=== PATIENT | female | born 1990 | race Caucasian/White ===

== ENCOUNTER → 2017-05-09 | Emergency (ER) | payer BC, OTHER ==
[~2017-05-09] MED LIST: HYDROcodone/ACETAMIN 5-325 MG* 1 TAB PO ONE; Ibuprofen TAB* 600 MG PO ONE
[2017-05-09 18:16] VITALS: BP 104/69
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
== END | disposition home or self-care (01) ==
LOC: ED 17:55
DX: S70.01XA Contusion of right hip, initial encounter (principal); V49.40XA Driver injured in collision with unspecified motor vehicles in traffic accident, initial encounter; Y93.9 Activity, unspecified; Y92.9 Unspecified place or not applicable
CPT/HCPCS: 99282; A9270-GY

== ENCOUNTER 2018-09-17 22:12 | Inpatient (IN) | payer BC ==
[2018-09-18] MEDS ORDERED: Lactated Ringers 1000 ML Bag* 1,000 ML IV PRN ×2 (01:48)
[2018-09-18 01:52] LABS: ABS Basophils 0.1 10^3/ul (0-0.2); ABS Eosinophils 0.1 10^3/ul (0-0.6); ABS Monocytes 0.8 10^3/ul (0-0.8); ABS Neutrophils 8.2 10^3/ul (1.5-7.7); ABS Nucleated RBC 0 10^3/ul; Eosinophil % 1.1 %; Hematocrit 38 % (35-47); Hemoglobin 12.8 g/dl (12.0-16.0); Lymphocyte % 17.4 %; Mean Corpuscular HGB Conc 33 g/dl (31-36); Mean Corpuscular Hemoglobin 30 pg (27-31); Mean Corpuscular Volume 90 fL (80-97); Mean Platelet Volume 8.3 fL (7.4-10.4); Nucleated Red Blood Cells % 0.1; Platelet Count 237 10^3/ul (150-450); Red Blood Count 4.28 10^6/ul (4.00-5.40); Red Cell Distribution Width 13 % (10.5-15); White Blood Count 11.3 10^3/ul (3.5-10.8)
[2018-09-18] MEDS ORDERED: OBEPIDURAL* 250 ML EPIDURAL ONE (02:21)
[2018-09-18] MEDS ORDERED: Lactated Ringers 1000 ML Bag* 1,000 ML IV ONE ×2 (02:28→02:50)
--- NOTE | 2018-09-18 02:40 | HP ---
General Information - Reason for Visit active labor - General Information Maternal Age: 28 Grav: 3 Para: 0 SAB: 0 IEA: 2 Estimated Due Date: 09/12/18 Determined By: LMP Maternal Blood Type and Rh: O Positive - Results this Serology/RPR Result: Non-Reactive Rubella Result: Immune HBsAg Result: Negative HIV Result: Negative GBS Culture Result: Negative Past Medical History Pertinent Past Medical History: See Records - migraines Pertinent Past Surgical History: See Records - appendectomy 2011, wrist surgery 2009 Pertinent Family History: See Records - CVD, stroke, DM - Antepartal Records Antepartal Records: Reviewed, Complicated by: - gestational diabetes ( diet controlled) Review of Systems Constitutional: Uncomfortable CV Complaint: No Respiratory: Shortness of Breath: No Gastrointestinal: No Nausea/Vomiting, Normal Bowel Movement Genitourinary: No Dysuria, No Bleeding, No Leaking Fluid Musculoskeletal: Contractions Neurological: No Headache, No Visual Changes Movement: Normal Exam Allergies/Adverse Reactions: Allergies amoxicillin Allergy (Verified 09/17/18 22:40) Rash latex Allergy (Verified 09/17/18 22:39) Anaphylatic Shock Penicillins Allergy (Verified 09/17/18 22:40) Rash T:97.4, P:85, R:20, BP:130/83, 99% Lab Values - Entire Visit: Laboratory Tests 09/18/18 09/18/18 09/18/18 01:34 01:35 01:35 WBC 11.3 H RBC 4.28 Hgb 12.8 Hct 38 MCV 90 MCH 30 MCHC 33 RDW 13 Plt Count 237 MPV 8.3 Neut % (Auto) 73.2 Lymph % (Auto) 17.4 [place] % (Auto) 7.5 Eos % (Auto) 1.1 Baso % (Auto) 0.8 Absolute Neuts (auto) 8.2 H Absolute Lymphs (auto) 2.0 Absolute Monos (auto) 0.8 Absolute Eos (auto) 0.1 Absolute Basos (auto) 0.1 Absolute Nucleated RBC 0 Nucleated RBC % 0.1 POC Glucose (mg/dL) 89 Blood Type O Positive Antibody Screen Negative - Measurements Height: 5 ft 4 in Weight: 167 lb 0.017 oz Weight in lbs: [id number] Body Mass Index (BMI): 28.6 Pre- Weight: 140 lb Weight Gained This : 27.001 lbs and 0.001 ozs - Exam Breast: Breast Exam Deferred CVA: No CVA Tenderness Extremities: No Edema Heart: Normal Rhythm/Heart Sounds HEENT: No Significant Findings Lungs: Clear Bilaterally Rectal: Rectal Exam Deferred Reflexes: DTR 2+ Thyroid: No Thyromegaly - Abdominal Exam Abdomen Exam: Fundal Height Consistent with Dates - Ultrasound/Biophysical Profile Ultrasound Status: Not Done Targeted Exam Findings Estimated Weight: 7.9lbs Cervical Exam: 5cm Effacement: 90% Station: 0 Presenting Part: Vertex Membrane Status: Intact Bleeding/Discharge: Bloody Show EFM Findings - External Monitor Findings Baseline Heart Rate: 140 External Monitor Findings: Accelerations Present, No Pattern of Variable or Late Decelerations, Variability Moderate, Baseline Stable Contractions: Regular, Moderate, 45-90 Seconds Assessment/Plan - Assessment active labor - Obstetrical Risk Factors Obstetrical Risk Factors: Gestational Diabetes - diet controlled - Plan Plan: Admit - Anticipate Vaginal Delivery - Date/Time of Admission Date of Admission: 09/18/18 Time of Admission: 01:30
[2018-09-18] MEDS ORDERED: Sodium Citrate/Citric Acid* 15 ML UDC PO PRN (02:50)
[2018-09-18] MEDS ORDERED: EPHEDrine (Pressors)* 50 MG/ML VIAL IV PUSH PRN ×2 (02:50)
[2018-09-18] MEDS ORDERED: Famotidine TAB* 20 MG PO PRN (02:50)
[2018-09-18] MEDS ORDERED: Phenylephrine IV* 40 MCG/ML 10 ML SYRINGE IV PUSH PRN ×2 (02:50)
[2018-09-18] MEDS ORDERED: OBEPIDURAL* 250 ML EPIDURAL SCH (03:00)
[2018-09-18] MEDS ORDERED: Lactated Ringers 1000 ML Bag* 1,000 ML IV SCH ×3 (03:00→08:00)
[2018-09-18] MEDS ORDERED: Oxytocin in LR* 20 UNITS/1,000 ML BAG IVPB ONE (07:31)
[2018-09-18] MEDS ORDERED: Witch Hazel PAD* JAR TOPICAL PRN (07:45)
[2018-09-18] MEDS ORDERED: Dibucaine 1% 28.35 GM TUBE PR PRN (07:45)
[2018-09-18] MEDS ORDERED: Glycerin ADULT SUPP PR PRN (07:45)
--- NOTE | 2018-09-18 07:49 | PROCNOTE ---
[facility]: Delivery Note - Delivery A Date of : 09/18/18 Time of : 07:24 Sex: Female Score 1 Minute: 8 Score 5 Minutes: 9 Gestational Age in Weeks and Days at Delivery: 40 Weeks and 6 Days Delivery Method: Spontaneous Vaginal Labor: Spontaneous Did Patient attempt ?: N/A, No Previous Amniotic Fluid: Clear Estimated Blood Loss: 150 Anesthesia/Analgesia: CEI for Labor Delivered By: Dena Ray - Nursery Level of Nursery: Regular/Bedside - Perineum Perineal Injury: 1st Degree Perineal Injury Comment: Right labial Perineal Repair: By Delivering Practioner - Events Delivery Events of Note: Pitocin Only After Delivery
[2018-09-18] MEDS ORDERED: Oxytocin in LR* 20 UNITS/1,000 ML BAG IVPB SCH (08:00)
[2018-09-18] MEDS ORDERED: Simethicone TAB* 80 MG TAB.CHEW PO SCH (08:30)
[2018-09-18] MEDS: Ibuprofen TAB* 600 MG PO PRN ×3 (09:32→22:12)
[2018-09-18] MEDS: Docusate CAP* 100 MG PO SCH ×3 (09:32→22:12)
[2018-09-19] MEDS: Ibuprofen TAB* 600 MG PO PRN ×2 (04:16→22:29)
[2018-09-19 06:52] LABS: ABS Basophils 0 10^3/ul (0-0.2); ABS Eosinophils 0.2 10^3/ul (0-0.6); ABS Lymphocytes 1.9 10^3/ul (1.0-4.8); ABS Monocytes 1.1 10^3/ul (0-0.8); ABS Neutrophils 10.1 10^3/ul (1.5-7.7); ABS Nucleated RBC 0 10^3/ul; Eosinophil % 1.4 %; Hematocrit 34 % (35-47); Hemoglobin 11.7 g/dl (12.0-16.0); Lymphocyte % 14.5 %; Mean Corpuscular HGB Conc 34 g/dl (31-36); Mean Corpuscular Hemoglobin 31 pg (27-31); Mean Corpuscular Volume 90 fL (80-97); Mean Platelet Volume 7.9 fL (7.4-10.4); Nucleated Red Blood Cells % 0; Platelet Count 215 10^3/ul (150-450); Red Blood Count 3.84 10^6/ul (4.00-5.40); Red Cell Distribution Width 13 % (10.5-15); White Blood Count 13.3 10^3/ul (3.5-10.8)
[2018-09-19] MEDS ORDERED: Ferrous Gluconate TAB* 324 MG TAB PO SCH (09:00)
[2018-09-19] MEDS: Docusate CAP* 100 MG PO SCH ×3 (09:45→20:55)
[2018-09-19] MEDS: Acetaminophen TAB* 325 MG PO PRN ×2 (17:20→22:28)
[2018-09-20] MEDS: Ibuprofen TAB* 600 MG PO PRN (03:55)
[2018-09-20 08:05] VITALS: BP 127/81
== END 2018-09-20 10:20 | disposition home or self-care (01) | DRG 560 ==
LOC: MCHOBOUT 22:12 → MCHOB 09-18 00:50
PROVIDERS: ADMIT Midwife; ATTEND Midwife
PROC: 10E0XZZ Delivery of Products of Conception, External Approach (ICD-10-PCS; principal; 2018-09-18)
PROC: 4A1HXCZ Monitoring of Products of Conception, Cardiac Rate, External Approach (ICD-10-PCS; 2018-09-18)
PROC: 10907ZC Drainage of Amniotic Fluid, Therapeutic from Products of Conception, Via Natural or Artificial Opening (ICD-10-PCS; 2018-09-18)
PROC: 0HQ9XZZ Repair Perineum Skin, External Approach (ICD-10-PCS; 2018-09-18)
DX: O24.420 Gestational diabetes mellitus in childbirth, diet controlled (principal); Z37.0 Single live birth; O48.0 Post-term pregnancy; O75.89 Other specified complications of labor and delivery; G43.909 Migraine, unspecified, not intractable, without status migrainosus; Z88.0 Allergy status to penicillin; Z91.040 Latex allergy status; Z3A.40 40 weeks gestation of pregnancy; O70.0 First degree perineal laceration during delivery
CPT/HCPCS: 36415; 85025; 86850; 86900; 86901; A9270-GY

== ENCOUNTER 2019-01-28 06:44 | Emergency (ER) | payer BC ==
[2019-01-28 07:15] LABS: ABS Basophils 0.1 10^3/ul (0-0.2); ABS Eosinophils 0.1 10^3/ul (0-0.6); ABS Lymphocytes 2.1 10^3/ul (1.0-4.8); ABS Monocytes 0.5 10^3/ul (0-0.8); ABS Neutrophils 4.6 10^3/ul (1.5-7.7); ABS Nucleated RBC 0 10^3/ul; Eosinophil % 1.7 %; Hematocrit 40 % (33-41); Hemoglobin 13.2 g/dL (12.0-16.0); Lymphocyte % 28.3 %; Mean Corpuscular HGB Conc 33 g/dL (31-36); Mean Corpuscular Hemoglobin 30 pg (27-31); Mean Corpuscular Volume 89 fL (80-97); Mean Platelet Volume 8.1 fL (7.4-10.4); Nucleated Red Blood Cells % 0.1; Platelet Count 297 10^3/uL (150-450); Red Blood Count 4.45 10^6 /uL (3.70-4.87); Red Cell Distribution Width 13 % (10.5-15); White Blood Count 7.4 10^3/uL (3.5-10.8)
[2019-01-28 07:30] LABS: Albumin/Globulin Ratio 1.6 (1-3); BUN/Creatinine Ratio 17.8 (8-20); Calcium 8.8 mg/dL (8.6-10.3); EGFR African American 90.9 (>60); EGFR Non-African American 75.1 (>60); Globulin 2.5 g/dL (2-4); Magnesium 1.8 mg/dL (1.9-2.7); Potassium 4.2 mmol/L (3.5-5.0); Total Bilirubin 0.2 mg/dL (0.2-1.0); Total Protein 6.5 g/dL (6.4-8.9)
[2019-01-28 07:31] LABS: Troponin I 0.01 ng/mL (<0.04)
[2019-01-28] MEDS ORDERED: Acetaminophen TAB* 325 MG PO ONE (07:43)
[2019-01-28 08:20] LABS: Urine Appearance Cloudy; Urine Bacteria Absent (Absent); Urine Bilirubin Negative (Negative); Urine Blood 1+ (Negative); Urine Color Yellow; Urine Glucose Negative (Negative); Urine Ketones Negative (Negative); Urine Nitrite Negative (Negative); Urine Protein Negative (Negative); Urine Red Blood Cell Trace(0-2/hpf) (Absent); Urine Specific Gravity 1.017 (1.010-1.030); Urine Squamous Epithelial Cell Present (Absent); Urine Urobilinogen Negative (Negative); Urine White Blood Cell Trace(0-5/hpf) (Absent)
[2019-01-28 08:24] VITALS: BP 110/62
[2019-01-28 08:37] LABS: TSH (Thyroid Stimulating Horm) 0.45 mcIU/mL (0.34-5.60)
--- NOTE | 2019-01-28 08:56 | ED ---
Syncope/Near Syncope - HPI Summary HPI Summary: Patient is a 28-year-old otherwise healthy female presenting to the ED with a syncopal episode this morning. She states she has been dealing with syncopal episodes intermittently since second grade. She states her last episode was 2 years ago. She does endorse a feeling of lightheadedness without dizziness or headache just prior to her syncopal episodes. She states she is very aware of when she may have one and is able to usually get to lower ground. She typically denies any loss of consciousness with this. She does endorse some LOC during the syncopal episode, however syncopal episode was witnessed by partner and states he helped her down to the floor, denies her hitting her head and came to a few seconds later. She was given some water and felt improved. She arrives to the ED with complaints of feeling lightheaded, but denies any headache, dizziness, CP, SOB or any other symptoms. She denies any recent illness. She denies change in medications. She does admit to not eating or drinking anything prior to her syncopal episode and she was standing when this occurred. FHx: Mother is at bedside stating father had TX at 45 years old. - History Of Current Complaint Chief Complaint: EDSyncope Time Seen by Provider: 01/28/19 06:47 Hx Obtained From: Patient Onset/Duration: Sudden Onset Timing: Constant Context: Witnessed Associated Head Trauma: No Aggravating Factor(s): Nothing Alleviating Factor(s): Nothing Associated Signs And Symptoms: Negative Frequency: Episodes x___ - 1, Episodes Lasting ____ (in Mins/Days/Weeks/Years) - 5 sec, Ongoing Incidents Of Syncope For (in Mins/Days/Weeks/Years) - several years - last episode 2 yrs ago - Risk Factors Cardiac Risk Factors: Family History Dysrhythmia Risk Factors: Negative Risk Factor(s): Negative - Allergies/Home Medications Allergies/Adverse Reactions: Allergies Allergy/AdvReac Type Severity Reaction Status Date / Time amoxicillin Allergy Rash Verified 01/28/19 06:56 latex Allergy Anaphylatic Verified 01/28/19 06:56 Shock mushroom Allergy Rash Verified 01/28/19 06:56 Penicillins Allergy Rash Verified 01/28/19 06:56 Home Medications: Home Medications Topiramate TAB(*) [Topamax 25 MG tab] 25 mg PO BID PRN 01/28/19 [History Confirmed 01/28/19] PMH/Surg Hx/FS Hx/Imm Hx Previously Healthy: Yes Endocrine/Hematology History: Denies: Hx Anticoagulant Therapy, Hx Diabetes, Hx Thyroid Disease Cardiovascular History: Denies: Hx Hypertension, Hx Pacemaker/ICD Sensory History: Denies: Hx Hearing Aid Neurological History: Reports: Other Neuro Impairments/Disorders - History of syncope with unknown cause Psychiatric History: Denies: Hx Panic Disorder - Surgical History Surgery Procedure, Year, and Place: APPENDECTOMY 11/2011 - Immunization History Hx Pertussis Vaccination: No Immunizations Up to Date: Yes Infectious Disease History: No Infectious Disease History: Denies: Traveled Outside the [place] in Last 30 Days - Family History Known Family History: Positive: Cardiac Disease - Social History Occupation: Employed Full-time Lives: With Family Alcohol Use: None Hx Substance Use: No Substance Use Type: Reports: None Hx Tobacco Use: No Smoking Status (MU): Never Smoked Tobacco Have You Smoked in the Last Year: No Review of Systems Constitutional: Negative Negative: Fever, Chills, Fatigue, Skin Diaphoresis Negative: Palpitations, Chest Pain Negative: Shortness Of Breath, Cough Negative: Arthralgia, Myalgia Negative: Rash, Bruising Neurological: Negative Positive: Syncope All Other Systems Reviewed And Are Negative: Yes Physical Exam Triage Information Reviewed: Yes Vital Signs On Initial Exam: Initial Vitals Resp 21 01/28/19 06:49 Vital Signs Reviewed: Yes Appearance: Positive: Well-Appearing, Well-Nourished Skin: Positive: Warm, Skin Color Reflects Adequate Perfusion Head/Face: Positive: Normal Head/Face Inspection Eyes: Positive: EOMI, Conjunctiva Clear Neck: Positive: Supple, No Lymphadenopathy Respiratory/Lung Sounds: Positive: Clear to Auscultation, Breath Sounds Present Cardiovascular: Positive: RRR, Pulses are Symmetrical in both Upper and Lower Extremities. Negative: Leg Edema Left, Leg Edema Right Musculoskeletal: Positive: Normal, Strength/ROM Intact Neurological: Positive: Sensory/Motor Intact, Alert, Oriented to Person Place, Time Psychiatric: Positive: Normal, Affect/Mood Appropriate AVPU Assessment: Alert Diagnostics - Vital Signs Vital Signs Temp Pulse Resp BP Pulse Ox 01/28/19 08:23 98.2 F 64 17 110/62 100 01/28/19 08:00 65 21 99 01/28/19 07:50 82 17 105/70 100 01/28/19 07:20 68 15 105/65 99 01/28/19 07:03 94 104/77 01/28/19 07:02 25 99 01/28/19 07:01 14 100 01/28/19 07:00 17 100 01/28/19 06:56 100 01/28/19 06:53 98.7 F 81 21 111/67 100 01/28/19 06:50 17 111/67 01/28/19 06:49 21 - Laboratory Lab Results: Lab Results 01/28/19 01/28/19 01/28/19 Range/Units 07:06 07:06 07:06 WBC 7.4 (3.5-10.8) 10^3/uL RBC 4.45 (3.70-4.87) 10^6 /uL Hgb 13.2 (12.0-16.0) g/dL Hct 40 (33-41) % MCV 89 (80-97) fL MCH 30 (27-31) pg MCHC 33 (31-36) g/dL RDW 13 (10.5-15) % Plt Count 297 (150-450) 10^3/uL MPV 8.1 (7.4-10.4) fL Neut % (Auto) 61.7 % Lymph % (Auto) 28.3 % [place] % (Auto) 7.4 % Eos % (Auto) 1.7 % Baso % (Auto) 0.9 % Absolute Neuts (auto) 4.6 (1.5-7.7) 10^3/ul Absolute Lymphs (auto) 2.1 (1.0-4.8) 10^3/ul Absolute Monos (auto) 0.5 (0-0.8) 10^3/ul Absolute Eos (auto) 0.1 (0-0.6) 10^3/ul Absolute Basos (auto) 0.1 (0-0.2) 10^3/ul Absolute Nucleated RBC 0 10^3/ul Nucleated RBC % 0.1 Sodium 140 (135-145) mmol/L Potassium 4.2 (3.5-5.0) mmol/L Chloride 108 (101-111) mmol/L Carbon Dioxide 26 (22-32) mmol/L Anion Gap 6 (2-11) mmol/L BUN 16 (6-24) mg/dL Creatinine 0.90 (0.51-0.95) mg/dL Est GFR ( Amer) 90.9 (>60) Est GFR (Non-Af Amer) 75.1 (>60) BUN/Creatinine Ratio 17.8 (8-20) Glucose 105 H (70-100) mg/dL Lactic Acid 1.1 (0.5-2.0) mmol/L Calcium 8.8 (8.6-10.3) mg/dL Magnesium 1.8 L (1.9-2.7) mg/dL Total Bilirubin 0.20 (0.2-1.0) mg/dL AST 18 (13-39) U/L ALT 27 (7-52) U/L Alkaline Phosphatase 153 H (34-104) U/L Troponin I 0.01 (<0.04) ng/mL Total Protein 6.5 (6.4-8.9) g/dL Albumin 4.0 (3.2-5.2) g/dL Globulin 2.5 (2-4) g/dL Albumin/Globulin Ratio 1.6 (1-3) TSH 0.45 (0.34-5.60) mcIU/mL Urine Color Urine Appearance Urine pH (5-9) Ur Specific [place] (1.010-1.030) Urine Protein (Negative) Urine Ketones (Negative) Urine Blood (Negative) Urine Nitrate (Negative) Urine Bilirubin (Negative) Urine Urobilinogen (Negative) Ur Leukocyte Esterase (Negative) Urine WBC (Auto) (Absent) Urine RBC (Auto) (Absent) Ur Squamous Epith Cells (Absent) Urine Bacteria (Absent) Hyaline Casts (Absent) Urine Glucose (Negative) 01/28/19 Range/Units 07:57 WBC (3.5-10.8) 10^3/uL RBC (3.70-4.87) 10^6 /uL Hgb (12.0-16.0) g/dL Hct (33-41) % MCV (80-97) fL MCH (27-31) pg MCHC (31-36) g/dL RDW (10.5-15) % Plt Count (150-450) 10^3/uL MPV (7.4-10.4) fL Neut % (Auto) % Lymph % (Auto) % [place] % (Auto) % Eos % (Auto) % Baso % (Auto) % Absolute Neuts (auto) (1.5-7.7) 10^3/ul Absolute Lymphs (auto) (1.0-4.8) 10^3/ul Absolute Monos (auto) (0-0.8) 10^3/ul Absolute Eos (auto) (0-0.6) 10^3/ul Absolute Basos (auto) (0-0.2) 10^3/ul Absolute Nucleated RBC 10^3/ul Nucleated RBC % Sodium (135-145) mmol/L Potassium (3.5-5.0) mmol/L Chloride (101-111) mmol/L Carbon Dioxide (22-32) mmol/L Anion Gap (2-11) mmol/L BUN (6-24) mg/dL Creatinine (0.51-0.95) mg/dL Est GFR ( Amer) (>60) Est GFR (Non-Af Amer) (>60) BUN/Creatinine Ratio (8-20) Glucose (70-100) mg/dL Lactic Acid (0.5-2.0) mmol/L Calcium (8.6-10.3) mg/dL Magnesium (1.9-2.7) mg/dL Total Bilirubin (0.2-1.0) mg/dL AST (13-39) U/L ALT (7-52) U/L Alkaline Phosphatase (34-104) U/L Troponin I (<0.04) ng/mL Total Protein (6.4-8.9) g/dL Albumin (3.2-5.2) g/dL Globulin (2-4) g/dL Albumin/Globulin Ratio (1-3) TSH (0.34-5.60) mcIU/mL Urine Color Yellow Urine Appearance Cloudy Urine pH 5.0 (5-9) Ur Specific [place] 1.017 (1.010-1.030) Urine Protein Negative (Negative) Urine Ketones Negative (Negative) Urine Blood 1+ A (Negative) Urine Nitrate Negative (Negative) Urine Bilirubin Negative (Negative) Urine Urobilinogen Negative (Negative) Ur Leukocyte Esterase Negative (Negative) Urine WBC (Auto) Trace(0-5/hpf) (Absent) Urine RBC (Auto) Trace(0-2/hpf) (Absent) Ur Squamous Epith Cells Present A (Absent) Urine Bacteria Absent (Absent) Hyaline Casts Present A (Absent) Urine Glucose Negative (Negative) Result Diagrams: 01/28/19 07:06 01/28/19 07:06 Lab Statement: Any lab studies that have been ordered have been reviewed, and results considered in the medical decision making process. Course/Dx Course Of Treatment: During the course of treatment, the patient is evaluated for a syncopal episode. Labs are obtained which are WNL except for an alkaline phosphatase which is slightly elevated. Urine obtained which is WNL. EKG shows normal sinus rhythm with low voltage, precordial leads. Rate of 77. Vital signs are stable. Patient appears well, nontoxic appearing, however appears fatigued. Discussed with the patient at length, this is likely vasovagal episode as she had symptoms and feelings of the syncopal episode, denies any chest pain or headache during this time and felt improved after obtaining fluids. She has also been dealing with this for many years. I discussed if symptoms continue or worsen, to return to the ED or she is able to follow up with one of our cardiologists. At this time she will be diagnosed with vasovagal episode. - Diagnoses Differential Diagnosis/HQI/PQRI: Positive: Hypoglycemia, Hypovolemia, Metabolic Reaction, Vasovagal Episode Provider Diagnoses: Vasovagal episode Discharge - Sign-Out/Discharge Documenting (check all that apply): Patient Departure Patient Received Moderate/Deep Sedation with Procedure: No - Discharge Plan Condition: Stable Disposition: HOME Patient Education Materials: Syncope (ED) Forms: *Work Release Referrals: No Primary Care Phys,NOPCP [Primary Care Provider] - Additional Instructions: If symptoms continue, I recommend a follow up with a manager e commerce However, as discussed, sometimes people are more prone to having vasovagal syncopal episodes Drink plenty of water following and including juice - Billing Disposition and Condition Condition: STABLE Disposition: Home
== END 2019-01-28 08:23 | disposition home or self-care (01) ==
LOC: ED 06:44
DX: R55 Syncope and collapse (principal); Z88.3 Allergy status to other anti-infective agents; Z88.0 Allergy status to penicillin; Z91.040 Latex allergy status
CPT/HCPCS: 36415; 80053; 81003; 81015; 83605; 83735; 84443; 84484; 85025; 87086; 93005; 99283; A9270-GY

== ENCOUNTER 2019-02-13 09:45 | Emergency (ER) | payer BC ==
--- NOTE | 2019-02-13 10:10 | ED ---
Syncope/Near Syncope - HPI Summary HPI Summary: This patient is a 28 year old MF presenting to [facility] with history of syncope since 2nd grade and a chief complaint of syncope since this morning 02/13/19 while receiving and echo in [facility] [place]. Patient reports migraine, nausea, lightheadedness, and dizziness. Patient denies rash, urinary symptoms, edema, and head injury. Patient also reports not eating today and an unknown LNMP due to Mirena IUD. Symptoms aggravated by nothing. Symptoms alleviated by nothing. - History Of Current Complaint Chief Complaint: EDSyncope Time Seen by Provider: 02/13/19 09:52 Hx Obtained From: Patient Onset/Duration: Sudden Onset - this morning 02/13/19, length is unsure, Resolved Timing: Constant - one episode Context: Witnessed Activity At Onset: At Rest Associated Head Trauma: No Aggravating Factor(s): Nothing Alleviating Factor(s): Nothing Associated Signs And Symptoms: Dizzy, Headache, Lightheadedness, Other - Nausea ; Negative: head injury, edema, rash, urinary symptoms Related History: Similar Episode/Dx as - Has previous Hx of unkown cause - Allergies/Home Medications Allergies/Adverse Reactions: Allergies Allergy/AdvReac Type Severity Reaction Status Date / Time amoxicillin Allergy Rash Verified 02/13/19 09:51 latex Allergy Anaphylatic Verified 02/13/19 09:51 Shock mushroom Allergy Rash Verified 02/13/19 09:51 Penicillins Allergy Rash Verified 02/13/19 09:51 Home Medications: Home Medications ZOLMitriptan [Zolmitriptan] 2.5 mg PO SEE INSTRUCTIONS PRN 02/13/19 [History Confirmed 02/13/19] PMH/Surg Hx/FS Hx/Imm Hx Previously Healthy: No Endocrine/Hematology History: Denies: Hx Anticoagulant Therapy, Hx Diabetes, Hx Thyroid Disease Cardiovascular History: Denies: Hx Hypertension, Hx Pacemaker/ICD Sensory History: Denies: Hx Hearing Aid Neurological History: Reports: Other Neuro Impairments/Disorders - History of syncope with unknown cause Psychiatric History: Denies: Hx Panic Disorder - Surgical History Surgery Procedure, Year, and Place: APPENDECTOMY 11/2011 Infectious Disease History: No Infectious Disease History: Denies: Traveled Outside the [place] in Last 30 Days - Family History Known Family History: Positive: Cardiac Disease - Social History Alcohol Use: None Hx Substance Use: No Substance Use Type: Reports: None Hx Tobacco Use: No Smoking Status (MU): Never Smoked Tobacco Have You Smoked in the Last Year: No Review of Systems Positive: Nausea Positive: no symptoms reported Positive: Other - Negative: head injury. Negative: Edema Negative: Rash Neurological: Other - Dizziness, Migraine Positive: Syncope All Other Systems Reviewed And Are Negative: Yes Physical Exam - Summary Physical Exam Summary: Constitutional: Well-developed, Well-nourished, Alert. (-) Distressed Skin: Warm, Dry HENT: Normocephalic; Atraumatic Eyes: Conjunctiva normal Neck: Musculoskeletal ROM normal neck. (-) JVD, (-) Stridor, (-) Tracheal deviation Cardio: Rhythm regular, rate normal, Heart sounds normal; Intact distal pulses; The pedal pulses are 2+ and symmetric. Radial pulses are 2+ and symmetric. (-) Murmur Pulmonary/Chest wall: Effort normal. (-) Respiratory distress, (-) Wheezes, (-) Rales Abd: Soft, (-) tenderness, (-) Distension, (-) Guarding, (-) Rebound Musculoskeletal: (-) Edema Lymph: (-) Cervical adenopathy Neuro: Alert, Oriented x3 Psych: Mood and affect Normal Triage Information Reviewed: Yes Vital Signs On Initial Exam: Initial Vitals Temp Pulse Resp BP Pulse Ox 99.0 F 80 16 142/96 100 02/13/19 09:47 02/13/19 09:47 02/13/19 09:47 02/13/19 09:47 02/13/19 09:47 Vital Signs Reviewed: Yes Diagnostics - Vital Signs Vital Signs Temp Pulse Resp BP Pulse Ox 02/13/19 09:47 99.0 F 80 16 142/96 100 - Laboratory Result Diagrams: 02/13/19 10:22 02/13/19 10:22 Lab Statement: Any lab studies that have been ordered have been reviewed, and results considered in the medical decision making process. - EKG 1004 Cardiac Rate: NL - 73 EKG Rhythm: Sinus Rhythm Summary of EKG Findings: Normal sinus rhythm at 73 bpm, normal AK, normal QRS, normal QTc, normal axis, normal ST, normal T-waves, normal EKG. Re-Evaluation - Re-Evaluation First Eval Re-Evaluation Time: 11:20 Change: Improved Comment: Discharge plan was discussed with the patient. Patient reports feeling normal and is agreeable. Course/Dx Course Of Treatment: This patient is a 28 year old MF presenting to [facility] with a chief complaint of syncope since this morning 02/13/19. Patient has abnormal labratory findings of carbondioxide of 19 L, and alkaline phosphate of 144 H. The patient's EKG was also normal, with a sinus rhythm at 73 bpm, normal AK, normal QRS, normal QTc, normal axis, normal ST, and normal T-waves. Patient reported a previous Hx of syncope starting back in 2nd grade. The symptoms experianced on this visit were similar to prior episodes of syncope. Patient was Dx with vasovagal syncope. Patient was discharged home. - Diagnoses Differential Diagnosis/HQI/PQRI: Positive: Vasovagal Episode Provider Diagnoses: Syncope, vasovagal Discharge - Sign-Out/Discharge Documenting (check all that apply): Patient Departure - discharge Patient Received Moderate/Deep Sedation with Procedure: No - Discharge Plan Condition: Stable Disposition: HOME Patient Education Materials: Syncope (ED) Print Language: WELSH Referrals: [facility] [place] PHYSICIAN REFERRAL [Outside] - 1 Day - Billing Disposition and Condition Condition: STABLE Disposition: Home - Attestation Statements Document Initiated by Scribe: Yes Documenting Scribe: Romulo Michaels Provider For Whom Scribe is Documenting (Include Credential): Ceci Garcia MD Scribe Attestation: Romulo Mayes, scrpauled for Ceci Mcneil MD on 02/13/19 at 1135. Scribe Documentation Reviewed: Yes Provider Attestation: The documentation as recorded by the Romulo ivory accurately reflects the service I personally performed and the decisions made by me, Ceci Mcneil MD Status of Scribe Document: Viewed
--- OUTSIDE RECORDS SUMMARY | 2019-02-13 10:28 | XMS REPORT | Continuity of Care Document ---
:1990 External Reference #:[id number] Author Name Kimberly White Care Team Providers Name Role Phone Dena Ray L.M. 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 Cesario Sams Expires: 2017 PayID: [id number] [address] [place] [address] Advance Directives Description No Information Available Problems Active Problems Provider Date Migraine Deanna Decker M.D. Onset: 01/01/2015 Epidemic vertigo Nilay Flowers MD Onset: 02/07/2019 Syncope and collapse Dave Mayers N.P. Onset: 01/31/2019 Refractory migraine Estrada Pina M.D. Onset: 03/05/2018 Closed extraarticular fracture of distal Berkley Yu M.D. 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 Tablets Zolmitriptan take 1 at start 10tabs G43.919 Mushtaqluisolga lidia Pina, 10/11/2018 5mg of headache, january M.D. Tablets repeat X 1 in 2 hours if headache persists, no more than 2 in 24 hours, 2 times a week. Tylenol as needed Unknown 325mg Capsules History Medications Methylprednisolone take as 21units G43.919 Dave 01/31/2019 - 4mg TBPK directed Talib, N.PCassie 02/06/2019 Zonisamide 4 caps by mouth 120caps G43.919 Lima Call MD 08/03/2017 - 25mg Capsules every night as 03/04/2018 directed Magnesium Oxide 1 tab by mouth 60tabs G43.919 Deanna Kitchen 08/03/2017 - 400mg Tablets 1-2 times per Vahe Decker 03/04/2018 day as directed Topamax 3 by mouth at 90tabs G43.909 Deanna Kitchen 03/02/2017 - 25mg Tablets every day Vahe Decker 03/04/2018 Ketoprofen 1 by mouth at 30caps G43.909 Deanna Kitchen 03/02/2017 - 75mg Capsules bedtime for 6 Vahe Decker 03/04/2018 days beginning with first headache occurance Sumatriptan Succinate 1/2-1 tab by 12tabs G43.909 Deanan Kitchen 03/02/2017 - 100mg mouth as needed Vahe Decker 03/04/2018 Tablets Topamax 1 tab by mouth 90tabs Lima Call MD 11/07/2016 - 100mg Tablets once a day 08/02/2017 Topamax 3 by mouth at 120tabs Deanna Kitchen 05/19/2016 - 25mg Tablets every day Vahe Decker 11/07/2016 Pamelor 1-2 by mouth 60caps Deanna Kitchen 03/09/2016 - 25mg Capsules every day as Vahe Decker 06/15/2016 directed No Active Medications Unknown 01/28/2016 - 03/09/2016 Zolmitriptan 1 by mouth 10tabs Flavio Rocha 11/20/2015 - 5mg Tablets twice a day as Vahe Rodriguez 03/04/2018 Dispers needed headache max 2 days a week Hydrocodone-Acetaminophe 1 by mouth 30tabs G43.909 Deanna Kitchen 01/01/2015 - n every 8 hours Vahe Decker 01/27/2016 5-325mg Tablets prn. Pamelor 4 caps every 120caps G43.919 Falvio Rocha 08/12/2014 - 10mg Capsules night as Vahe Rodriguez 01/27/2016 directed Relpax 1 tab by mouth 12tabs Deanna Kitchen 09/19/2013 - 40mg Tablets as needed ; january Vahe Decker 05/13/2015 repeat in 2 hrs. x1 Topiramate 2 tbs po qhs 120tabs Deanna Kitchen 09/20/2012 - 50mg Tablets Vahe Decker 01/30/2014 Control Pill Unknown - 08/02/2014 Topiramate 2 by mouth qhs Deanna Kitchen - 50mg Tablets Vahe Decker 08/02/2014 Zonisamide 3-4 caps by 120caps Deanna Morrell. - 50mg Capsules mouth every Vahe Decker 12/01/2014 night at bedtime as directed Ortho Micronor one tab by Unknown - 0.35mg Tablets mouth daily 05/13/2015 Hydrocodone-Acetaminophe take one tablet 25tabs Berkley - n by mouth mendez Yu M.D. 05/31/2016 5-325mg Tablets 6 hours as needed for pain Nortriptyline HCL 2 by mouth Unknown - 25mg every night at 05/31/2016 Capsules bedtime Mirena (52 MG) Unknown - 20mcg/24HR IUD 03/04/2018 Advil as needed Unknown - 200mg Tablets 03/04/2018 Immunizations Description No Information Available Vital Signs Date Vital Result Comment 02/07/2019 3:52pm Height 54 inches 4'6" Weight 152.00 lb Heart Rate 78 /min BP Systolic 120 mmHg BP Diastolic 80 mmHg Respiratory Rate 16 /min Body Temperature 99.6 F O2 % BldC Oximetry 98 % BMI (Body Mass Index) 36.6 kg/m2 01/31/2019 3:17pm Height 64 inches 5'4" Weight 150.00 lb Heart Rate 76 /min BP Systolic 122 mmHg BP Diastolic 78 mmHg BMI (Body Mass Index) 25.7 kg/m2 10/11/2018 2:21pm Height 64 inches 5'4" Weight 155.75 lb Heart Rate 72 /min BP Systolic Sitting 122 mmHg BP Diastolic Sitting 90 mmHg Respiratory Rate 16 /min BMI (Body Mass Index) 26.7 kg/m2 03/05/2018 11:12am Height 64 inches 5'4" Weight 145.00 lb Heart Rate 72 /min BP Systolic Sitting 104 mmHg BP Diastolic Sitting 72 mmHg Respiratory Rate 16 /min BMI (Body Mass Index) 24.9 kg/m2 08/03/2017 3:05pm Height 64 inches 5'4" Weight 135.00 lb Heart Rate 87 /min BP Systolic Sitting 110 mmHg BP Diastolic Sitting 62 mmHg Respiratory Rate 16 /min BMI (Body Mass Index) 23.2 kg/m2 03/02/2017 3:01pm Height 64 inches 5'4" Weight 132.00 lb Heart Rate 80 /min BP Systolic Sitting 104 mmHg BP Diastolic Sitting 66 mmHg Respiratory Rate 14 /min BMI (Body Mass Index) 22.7 kg/m2 10/27/2016 2:16pm Height 64 inches 5'4" Weight 135.00 lb Heart Rate 72 /min BP Systolic Sitting 104 mmHg BP Diastolic Sitting 64 mmHg Respiratory Rate 14 /min BMI (Body Mass Index) 23.2 kg/m2 06/16/2016 3:15pm Height 64 inches 5'4" Weight 130.00 lb Heart Rate 76 /min BP Systolic Sitting 104 mmHg BP Diastolic Sitting 76 mmHg Respiratory Rate 14 /min O2 % BldC Oximetry 98 % BMI (Body Mass Index) 22.3 kg/m2 06/01/2016 2:32pm Height 64 inches 5'4" Heart Rate 73 /min BP Systolic 121 mmHg BP Diastolic 81 mmHg 05/12/2016 3:45pm Height 64 inches 5'4" Weight 125.00 lb Pain Level 0 BMI (Body Mass Index) 21.5 kg/m2 04/18/2016 9:08am Height 64 inches 5'4" Weight 125.00 lb Heart Rate 60 /min Respiratory Rate 16 /min Pain Level 7 BMI (Body Mass Index) 21.5 kg/m2 04/07/2016 3:14pm Height 64 inches 5'4" Weight 125.00 lb BMI (Body Mass Index) 21.5 kg/m2 03/30/2016 8:30am Height 64 inches 5'4" Weight 125.00 lb Heart Rate 60 /min BP Systolic Sitting 112 mmHg BP Diastolic Sitting 64 mmHg Respiratory Rate 16 /min Pain Level 8 BMI (Body Mass Index) 21.5 kg/m2 01/28/2016 4:01pm Height 64 inches 5'4" Heart Rate 84 /min BP Systolic Sitting 128 mmHg BP Diastolic Sitting 76 mmHg Respiratory Rate 16 /min 08/13/2015 10:01am Height 64 inches 5'4" Weight 128.00 lb Heart Rate 76 /min BP Systolic Sitting 102 mmHg BP Diastolic Sitting 74 mmHg Respiratory Rate 16 /min BMI (Body Mass Index) 22.0 kg/m2 05/14/2015 3:29pm Height 64 inches 5'4" Weight 115.00 lb Heart Rate 72 /min BP Systolic Sitting 104 mmHg BP Diastolic Sitting 62 mmHg Respiratory Rate 16 /min BMI (Body Mass Index) 19.7 kg/m2 01/01/2015 3:03pm Height 64 inches 5'4" Weight 115.00 lb Heart Rate 76 /min BP Systolic Sitting 118 mmHg BP Diastolic Sitting 64 mmHg Respiratory Rate 16 /min BMI (Body Mass Index) 19.7 kg/m2 08/12/2014 9:41am Height 64 inches 5'4" Weight 116.00 lb Heart Rate 60 /min BP Systolic Sitting 108 mmHg BP Diastolic Sitting 74 mmHg Respiratory Rate 12 /min BMI (Body Mass Index) 19.9 kg/m2 02/27/2014 2:01pm Height 64 inches 5'4" Weight 114.00 lb Heart Rate 52 /min BP Systolic Sitting 114 mmHg BP Diastolic Sitting 70 mmHg Respiratory Rate 16 /min BMI (Body Mass Index) 19.6 kg/m2 09/19/2013 12:00pm Heart Rate 72 /min BP Systolic Sitting 102 mmHg BP Diastolic Sitting 68 mmHg Respiratory Rate 12 /min Results Description No Information Available Procedures Date Code Description Status 03/09/2017 05100 EEG Recording Awake & Drowsy Completed 03/30/2016 40974 CLST TRMT Distal Radial FX Completed Encounters Type Date Location Provider Dx Diagnosis Office Visit 10/11/2018 [place] Felisa Pina, G43.919 Migraine, unsp, 2:15p Services Of Speech Therapist Technician M.D. intractable, without status migrainosus Office Visit 08/14/2018 [facility] Dermatology Susanna Jeffery MD O26.86 Pruritic 4:30p urticarial papules and plaques of (Puppp) Office Visit 03/05/2018 [place] Felisa Pina G43.919 Migraine, unsp, 11:15a [facility] Speech Therapist Technician M.D. intractable, without status migrainosus Z33.1 state, incidental Office Visit 08/03/2017 Araine Kitchen G43.919 Migraine, unsp, 3:00p Felisa Decker M.D. intractable, [facility] Speech Therapist Technician without status migrainosus H53.8 Other visual disturbances Office Visit 03/02/2017 Ariane Kitchen G43.909 Migraine, unsp, 3:00p Felisa Decker M.D. not intractable, [facility] Speech Therapist Technician without status migrainosus R55 Syncope and collapse Office Visit 10/27/2016 Ariane Kitchen G43.909 Migraine, unsp, 2:15p Felisa Decker M.D. not intractable, Services Of Speech Therapist Technician without status migrainosus Office Visit 06/16/2016 Ariane Kitchen G43.909 Migraine, unsp, 3:15p Felisa Decker M.D. not intractable, Services Of Speech Therapist Technician without status migrainosus Office Visit 01/28/2016 Ariane Kitchen G43.909 Migraine, unsp, 3:45p Felisa Decker M.D. not intractable, Services Of Speech Therapist Technician without status migrainosus Office Visit 08/13/2015 Ariane Kitchen G43.919 Migraine, unsp, 10:00a Felisa Decker M.D. intractable, Services Of Speech Therapist Technician without status migrainosus Office Visit 05/14/2015 Ariane Kitchen 346.00 Migraine Classical 3:15p Felisa Decker M.D. W/O Intractable Services Of Speech Therapist Technician W/O Status Migrainosus Office Visit 01/01/2015 Ariane Kitchen 346.90 Migraine Unspec 3:00p Felisa Decker M.D. W/O Intractable Services Of [facility] W/O Status Migrainosus 346.10 Migraine Common W/O Intractable W/O Status Migrainosus 346.00 Migraine Classical W/O Intractable W/O Status Migrainosus Office Visit 08/12/2014 9:30a Ariane Kitchen 346.91 Migraine Unspec Neurologic Vahe Decker W/ Intractable Services Of [facility] W/O Status Migrainosus Office Visit 02/27/2014 11:30a Ariane Kitchen 346.10 Migraine Common Neurologic Vahe Decker W/O Intractable Services Of Speech Therapist Technician W/O Status Migrainosus Office Visit 09/19/2013 11:45a Ariane Kitchen 346.10 Migraine Common Neurologic Vahe Decker W/O Intractable Services Of Speech Therapist Technician W/O Status Migrainosus Office Visit 05/31/2013 1:30p Ariane Kitchen 346.90 Migraine Unspec Neurologic Vahe Decker W/O Intractable Services Of [facility] W/O Status Migrainosus Plan of Treatment Future Appointment(s):03/05/2019 8:30 am - Dave Mayers [facility] [id number]/07/2019 - Nilay Flowers MDG43.919 Migraine, unspecified, intractable, without status [id number] Syncope and collapseComments:follow-up with ECHO and holter monitor.Follow up:as needed.A88.1 Epidemic vertigoComments: Follow-up with Vestibular therapy.Referral:[facility]; [facility], Physical Therapist
--- OUTSIDE RECORDS SUMMARY | 2019-02-13 10:28 | XMS REPORT | Continuity of Care Document ---
:1990 External Reference #:[id number] Author Name Dottie Singleton Care Team Providers Name Role Phone Dena Ray L.M. Care Team Information Customer Engineering Specialist Unavailable Payers Date Identification Numbers Payment Provider Subscriber Effective: 2018 Policy Number: [id number] [employer] Vanda Faith PayID: [id number] [address] [address] [place] [address] Effective: 2015 Policy Number: [id number] [facility] Cesario Sams Expires: 2017 PayID: [id number] [address] [place] [address] Advance Directives Description No Information Available Problems Active Problems Provider Date Migraine Deanna Decker M.D. Onset: 01/01/2015 Syncope and collapse Dave Mayers NPebbles Onset: 01/31/2019 Refractory migraine Estrada Pina M.D. Onset: 03/05/2018 Closed extraarticular fracture of distal Berkley Yu M.D. 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 Topiramate 1 by mouth 60tabs G43.919 Dave Talib, 10/11/2018 25mg Tablets twice a day N.P. Zolmitriptan take 1 at 10tabs G43.919 Estrada Pina, 10/11/2018 5mg Tablets start of M.D. headache, may repeat X 1 in 2 hours if headache persists, no more than 2 in 24 hours, 2 times a week. Tylenol as needed Unknown 325mg Capsules History Medications Zonisamide 4 caps by mouth 120caps G43.919 Lima Call MD 08/03/2017 - 25mg every night as 03/04/2018 Capsules directed Magnesium Oxide 1 tab by mouth 60tabs G43.919 Deanna Kitchen 08/03/2017 - 400mg 1-2 times per Vahe Decker 03/04/2018 Tablets day as directed Topamax 3 by mouth at 90tabs G43.909 Deanna Kitchen 03/02/2017 - 25mg Tablets every day Vahe Decker 03/04/2018 Ketoprofen 1 by mouth at 30caps G43.909 Deanna Kitchen 03/02/2017 - 75mg bedtime for 6 Vahe Decker 03/04/2018 Capsules days beginning with first headache occurance Sumatriptan 1/2-1 tab by 12tabs G43.909 Deanna Kitchen 03/02/2017 - Succinate mouth as needed Vahe Decker 03/04/2018 100mg Tablets Topamax 1 tab by mouth 90tabs Lima Call MD 11/07/2016 - 100mg Tablets once a day 08/02/2017 Topamax 3 by mouth at 120tabs Deanna Kitchen 05/19/2016 - 25mg Tablets every day Vahe Decker 11/07/2016 Pamelor 1-2 by mouth 60caps Deanna Kitchen 03/09/2016 - 25mg Capsules every day as Vahe Decker 06/15/2016 directed No Active Unknown 01/28/2016 - Medications 03/09/2016 Zolmitriptan 1 by mouth twice 10tabs Flavio SCassie 11/20/2015 - 5mg a day as needed Jennifer, M.D. 03/04/2018 Tablets Dispers headache max 2 days a week Hydrocodone-Acetamin 1 by mouth every 30tabs G43.909 Deanna Kitchen 01/01/2015 - ophen 8 hours prn. Vahe Decker 01/27/2016 5-325mg Tablets Pamelor 4 caps every 120caps G43.919 Flavio SCassie 08/12/2014 - 10mg Capsules night as Vahe Rodriguez 01/27/2016 directed Relpax 1 tab by mouth 12tabs Deanna Kitchen 09/19/2013 - 40mg Tablets as needed ; january Vahe Decker 05/13/2015 repeat in 2 hrs. x1 Topiramate 2 tbs po qhs 120tabs Deanna Kitchen 09/20/2012 - 50mg Vahe Decker 01/30/2014 Tablets Control Pill Unknown - 08/02/2014 Topiramate 2 by mouth qhs Deanna Kitchen - 50mg Vahe Decker 08/02/2014 Tablets Zonisamide 3-4 caps by 120caps Deanna Kitchen - 50mg mouth every Vahe Decker 12/01/2014 Capsules night at bedtime as directed Ortho Micronor one tab by mouth Unknown - 0.35mg daily 05/13/2015 Tablets Hydrocodone-Acetamin take one tablet 25tabs Berkley Yu, - ophen by mouth every 6 M.D. 05/31/2016 5-325mg Tablets hours as needed for pain Nortriptyline HCL 2 by mouth every Unknown - night at bedtime 05/31/2016 25mg Capsules Mirena (52 MG) Unknown - 03/04/2018 20mcg/24HR IUD Advil as needed Unknown - 200mg Tablets 03/04/2018 Immunizations Description No Information Available Vital Signs Date Vital Result Comment 01/31/2019 3:17pm Height 64 inches 5'4" Weight [...] Available Procedures Date Code Description Status 03/09/2017 60853 EEG Recording Awake & Drowsy Completed 03/30/2016 39217 CLST TRMT Distal Radial FX Completed Encounters Type Date Location Provider Dx Diagnosis Office Visit 10/11/2018 [facility] Yovani, G43.919 Migraine, unsp, 2:15p [facility] n[facility], without status migrainosus Office Visit 08/14/2018 [facility] Susanna Jeffery MD O26.86 Pruritic 4:30p urticarial papules and plaques of (Puppp) Office [place]/05/[place] G43.919 Migraine, unsp, 11:15a [facility] [employer] M.D. intractable, without status migrainosus Z33.1 state, incidental Office Visit 08/03/2017 Ariane MorrellCassie G43.919 Migraine, unsp, 3:00p Felisa Decker M.D. intractable, [facility] [employer] without status migrainosus H53.8 Other visual disturbances Office Visit 03/02/2017 [place] Deanna PetrosCassie G43.909 Migraine, unsp, 3:00p Felisa Decker M.D. not intractable, [facility] [employer] without status migrainosus R55 Syncope and collapse Office Visit 10/27/2016 [place] Deanna PetrosCassie G43.909 Migraine, unsp, 2:15p Felisa Decker M.D. not intractable, [facility] [employer] without status migrainosus Office Visit 06/16/2016 [place] Deanna PetrosCassie G43.909 Migraine, unsp, 3:15p Felisa Decker M.D. not intractable, [facility] [employer] without status migrainosus Office Visit 01/28/2016 [place] Deanna PetrosCassie G43.909 Migraine, unsp, 3:45p Felisa Decker M.D. not intractable, [facility] [employer] without status migrainosus Office Visit 08/13/2015 [place] Pintody PetrosCassie G43.919 Migraine, unsp, 10:00a Felisa Decker M.D. intractable, [facility] [employer] without status migrainosus Office Visit 05/14/2015 [place] Deanna Kitchen 346.00 Migraine Classical 3:15p Felisa Decker M.D. W/O Intractable [facility] [employer] W/O Status Migrainosus Office Visit 01/01/2015 [place] Kitchen 346.90 Migraine Unspec 3:00p Felisa Decker M.D. W/O Intractable [facility] [employer] W/O Status Migrainosus 346.10 Migraine Common W/O Intractable W/O Status Migrainosus 346.00 Migraine Classical W/O Intractable W/O Status Migrainosus Office Visit 08/12/2014 9:30a Ariane Kitchen 346.91 Migraine Unspec Neurologic Vahe Decker W/ Intractable [facility] [employer] W/O Status Migrainosus Office Visit 02/27/2014 11:30a Ariane Kitchen 346.10 Migraine Common Neurologic Vahe Decker W/O Intractable [facility] W/O Status Migrainosus Office Visit 09/19/2013 11:45a Ariane Aguillon.10 Migraine Common Neurologic Vahe Decker W/O Intractable [facility] W/O Status Migrainosus Office Visit 05/31/2013 1:30p Ariane Aguillon.90 Migraine Unspec Neurologic Vahe Decker W/O Intractable [facility] W/O Status Migrainosus Plan of Treatment Future Appointment(s):03/05/2019 8:30 am - Dave [facility]ers N.P. at [id number]/31/2019 - Dave Mayers NPebblesG43.919 Migraine, unspecified, intractable, without status migrainosNew Medication: Methylprednisolone 4 mg - take as directedFollow up:6 weeks call one week after [id number] Syncope and collapseNew Orders:Echocardiogram, Ordered: Event Monitor, Ordered: 01/31/19Recommendations:Please establish with a pcp you can call care connections to establish to follow with you syncope
[2019-02-13 10:29] LABS: ABS Basophils 0.1 10^3/ul (0-0.2); ABS Eosinophils 0.1 10^3/ul (0-0.6); ABS Lymphocytes 1.9 10^3/ul (1.0-4.8); ABS Monocytes 0.5 10^3/ul (0-0.8); ABS Neutrophils 5.9 10^3/ul (1.5-7.7); Eosinophil % 1.2 %; Hematocrit 42 % (35-47); Hemoglobin 14.1 g/dL (12.0-16.0); Lymphocyte % 22.1 %; Mean Corpuscular HGB Conc 34 g/dL (31-36); Mean Corpuscular Hemoglobin 30 pg (27-31); Mean Corpuscular Volume 88 fL (80-97); Mean Platelet Volume 7.8 fL (7.4-10.4); Platelet Count 251 10^3/uL (150-450); Red Blood Count 4.79 10^6 /uL (3.70-4.87); Red Cell Distribution Width 13 % (10.5-15); White Blood Count 8.4 10^3/uL (3.5-10.8)
[2019-02-13 10:52] LABS: ALT 19 U/L (7-52); AST 17 U/L (13-39); Albumin 4.3 g/dL (3.2-5.2); Albumin/Globulin Ratio 1.5 (1-3); Alkaline Phosphatase 144 U/L (34-104); Anion Gap 7 mmol/L (2-11); BUN/Creatinine Ratio 18.7 (8-20); Blood Urea Nitrogen 14 mg/dL (6-24); CO2 Carbon Dioxide 19 mmol/L (22-32); Calcium 8.8 mg/dL (8.6-10.3); Chloride 111 mmol/L (101-111); EGFR African American 112.2 (>60); EGFR Non-African American 92.7 (>60); Globulin 2.8 g/dL (2-4); Glucose 88 mg/dL (70-100); Sodium 137 mmol/L (135-145); Total Protein 7.1 g/dL (6.4-8.9)
[2019-02-13 10:58] LABS: HCG Pregnancy < 0.60 mIU/mL
[2019-02-13 11:45] VITALS: BP 124/72
== END 2019-02-13 11:44 | disposition home or self-care (01) ==
LOC: ED 09:45
DX: R55 Syncope and collapse (principal); R94.31 Abnormal electrocardiogram [ECG] [EKG]; Z88.3 Allergy status to other anti-infective agents; Z88.0 Allergy status to penicillin; Z91.040 Latex allergy status
CPT/HCPCS: 36415; 80053; 84484; 84702; 85025; 93005; 99283

== ENCOUNTER 2019-11-05 09:17 | Emergency (ER) | payer BC ==
--- OUTSIDE RECORDS SUMMARY | 2019-11-05 09:24 | XMS REPORT | Continuity of Care Document ---
:1990 External Reference #:[id number] Author Name Dave Mayers N.P. (transmitted by agent of provider Annita [place]) Address [address], [address] [place] [id number] Care Team Providers Name Role Phone [facility] - Primary Care Care Team Information Terminal Press Operator [phone] Azul Yepez DO - Hospitalist Care Team Information Terminal Press Operator Problems Active Problems Provider Date Migraine Deanna Decker M.D. Onset: 01/01/2015 Epidemic vertigo Nilay Flowers MD Onset: 02/07/2019 Syncope and collapse Dave Mayers N.P. Onset: 01/31/2019 Refractory migraine Estrada Pina M.D. Onset: 03/05/2018 Closed extraarticular fracture of distal Berkley Yu M.D. Onset: 2015 radius Social History Type Date Description Comments Sex Unknown ETOH Use Occasionally consumes alcohol Tobacco Use Start: Unknown Patient has never smoked Recreational Drug Use Denies Drug Use Smoking Status Reviewed: 10/22/19 Patient has never smoked Exercise Type/Frequency walks a few blocks evenings Exercise Type/Frequency Exercises sporadically Allergies, Adverse Reactions, Alerts Active Allergies Reaction Severity Comments Date Amoxicillin Rash, vomiting 09/19/2013 Medications Active Medications SIG Qnty Indications Ordering Provider Date Aimovig inject sq once a 3ml Dave Mayers, 09/03/2019 70mg/ml month N.P. Solution Auto-Inject Medrol take as directed 21units G43.919 Dave Mayers, 08/08/2019 4mg TBPK N.P. Magnesium-Oxide 1 by mouth every 30tabs E83.42 Azul Yepez DO 2018 day 400(241.3mg) mg Tablets Vitamin B12 take one daily 30tabs Azul Yepez DO 02/21/2019 1000mcg Tablets ER Zolmitriptan take 1 at start 10tabs G43.919 Estrada Pina, 10/11/2018 5mg of headache, may M.D. Tablets repeat X 1 in 2 hours if headache persists, no more than 2 in 24 hours, 2 times a week. Riboflavin 1 by mouth every Unknown 400mg day Tablets History Medications Verapamil HCL 1 tablet three 120tabs G43.919 Dave Mayers, 08/08/2019 - times a day N.P. 10/21/2019 40mg Tablets Immunizations Description No Information Available Vital Signs Date Vital Result Comment 10/22/2019 8:56am Height 64 inches 5'4" Weight 156.00 lb Heart Rate 88 /min BP Systolic 120 mmHg BP Diastolic 84 mmHg Respiratory Rate 20 /min BMI (Body Mass Index) 26.8 kg/m2 08/08/2019 3:48pm Height 64 inches 5'4" Weight 150.00 lb Heart Rate 64 /min BP Systolic 122 mmHg BP Diastolic 86 mmHg BMI (Body Mass Index) 25.7 kg/m2 Results Description No Information Available Procedures Description No Information Available Medical Devices Description No Information Available Encounters Type Date Location Provider Dx Diagnosis Office Visit 08/08/2019 [facility] Dave Mayers, G43.919 Migraine, unsp, 3:30p [facility] N.P. intractable, without status migrainosus I47.1 Supraventricular tachycardia Office Visit 06/19/2019 4:40p [facility] Qutaybeh SCassie R42 Dizziness and Vahe Madden giddiness E83.42 Hypomagnesemia I47.1 Supraventricular tachycardia I44.0 Atrioventricular block, first degree Office Visit 05/24/2019 4:00p [facility] Azul Yepez, R55 Syncope and Medicine - Suite DO collapse R E83.42 Hypomagnesemia Office Visit 05/06/2019 3:30p [facility] Dave Mayers, R55 Syncope and [facility] N.P. collapse R94.31 Abnormal electrocardiogram [ECG] [EKG] G43.919 Migraine, unsp, intractable, without status migrainosus Assessments Date Code Description Provider 10/22/2019 G43.919 Migraine, unspecified, intractable, Dave Mayers, N.P. without status migrainos 10/22/2019 I47.1 Supraventricular tachycardia Dave Mayers, N.P. 08/08/2019 G43.919 Migraine, unspecified, intractable, Dave Mayers, N.P. without status migrainos 08/08/2019 I47.1 Supraventricular tachycardia Dave Mayers, N.P. 06/19/2019 R42 Dizziness and giddiness Kailey Madden M.D. 06/19/2019 E83.42 Hypomagnesemia Kailey Madden M.D. 06/19/2019 I47.1 Supraventricular tachycardia Kailey Madden M.D. 06/19/2019 I44.0 Atrioventricular block, first degree Kailey Mdaden M.D. 05/24/2019 R55 Syncope and collapse Azul Yepez, DO 05/24/2019 E83.42 Hypomagnesemia Azul Yepez, DO 05/06/2019 R55 Syncope and collapse Dave Mayers, N.P. 05/06/2019 R94.31 Abnormal electrocardiogram [ECG] [EKG] Dave Mayers, N.P. 05/06/2019 G43.919 Migraine, unspecified, intractable, Dave Mayers, N.P. without status migrainos Plan of Treatment Future Appointment(s):03/05/2020 2:45 pm - [facility]str[facility] at [facility]/22/2019 - Dave Mayers, N.P.G43.919 Migraine, unspecified, intractable, without status migrainosFollow up:4-5 [id number] Supraventricular tachycardia Functional Status Description No Information Available Mental Status Description No Information Available Referrals Description No Information Available
[2019-11-05 09:37] VITALS: BP 116/67
--- NOTE | 2019-11-05 10:53 | UC ---
FLU HPI - HPI Summary HPI Summary: 29 yo female presents with flu-like symptoms. She tells me that her whole family has been sick with flu-like symptoms over the last 2 weeks. Last night pt began to have body aches, fatigue, and feeling feverish. Also with a runny nose and dry cough. She denies SOB, chest pain, abdominal pain, vomiting, diarrhea, dysuria. She did get a flu shot this year. - History of Current Complaint Chief Complaint: UCGeneralIllness Stated Complaint: FLU LIKE SYMPTOMS Time Seen by Provider: 11/05/19 10:53 Hx Obtained From: Patient Hx Last Menstrual Period: mirena Onset/Duration: Sudden Onset Severity Currently: Moderate Severity Initially: Moderate Pain Intensity: 7 Pain Scale Used: 0-10 Numeric - Allergy/Home Medications Allergies/Adverse Reactions: Allergies Allergy/AdvReac Type Severity Reaction Status Date / Time amoxicillin Allergy Rash Verified 11/05/19 09:37 latex Allergy Anaphylatic Verified 11/05/19 09:37 Shock mushroom Allergy Rash Verified 11/05/19 09:37 Penicillins Allergy Rash Verified 11/05/19 09:37 Home Medications: Home Medications Erenumab-Aooe [Aimovig Autoinjector] 1 % .ROUTE MONTHLY 11/05/19 [History Confirmed 11/05/19] PMH/Surg Hx/FS Hx/Imm Hx - Additional Past Medical History Additional PMH: Migraines Other History Of: Negative For: Anticoagulant Therapy - Surgical History Surgical History: Yes Surgery Procedure, Year, and Place: APPENDECTOMY 11/2011 - Family History Known Family History: Positive: Cardiac Disease - Social History Occupation: Employed Full-time Lives: With Family Alcohol Use: None Substance Use Type: None Smoking Status (MU): Never Smoked Tobacco Have You Smoked in the Last Year: No - Immunization History Most Recent Influenza Vaccination: 06/25/18 Most Recent Pneumonia Vaccination: n/a Review of Systems All Other Systems Reviewed And Are Negative: No Constitutional: Positive: Fatigue, Other - Body aches Skin: Positive: Negative Eyes: Positive: Negative ENT: Positive: Nasal Discharge Respiratory: Positive: Cough Cardiovascular: Positive: Negative Gastrointestinal: Positive: Negative Neurological: Positive: Negative Psychological: Positive: Negative Physical Exam - Summary Physical Exam Summary: GENERAL: NAD. WDWN. No pain distress. SKIN: No rashes, sores, lesions, or open wounds. HEENT: Head: AT/NC Eyes: EOM intact. Conjunctiva clear without inflammation or discharge. Ears: Hearing grossly normal. TMs intact, no bulging, erythema, or edema. Nose: Nasal mucosa pink and moist. NTTP maxillary and frontal sinus. Throat: Posterior oropharynx without exudates, erythema, or tonsillar enlargement. Uvula midline. NECK: Supple. Nontender. No lymphadenopathy. CHEST: CTAB. No r/r/w. No accessory muscle use. Breathing comfortably and in no distress. CV: RRR. Pulses intact. Cap refill <2seconds NEURO: Alert. PSYCH: Age appropriate behavior. Triage Information Reviewed: Yes Vital Signs: Initial Vital Signs Temp 97.6 F 11/05/19 09:34 Pulse 67 11/05/19 09:34 Resp 16 11/05/19 09:34 BP 116/67 11/05/19 09:34 Pulse Ox 100 11/05/19 09:34 Laboratory Tests 11/05/19 10:57 Influenza A (Rapid) Negative Influenza B (Rapid) Negative Vital Signs Reviewed: Yes Flu Course/Dx - Course Course Of Treatment: POC flu negative. Suspect viral illness - Differential Dx/Diagnosis Provider Diagnosis: Viral syndrome Discharge ED - Sign-Out/Discharge Documenting (check all that apply): Patient Departure All imaging exams completed and their final reports reviewed: No Studies - Discharge Plan Condition: Stable Disposition: HOME Patient Education Materials: Viral Syndrome (ED) Forms: *Work Release Referrals: Azul Yepez DO [Primary Care Provider] - Additional Instructions: FLU TEST NEGATIVE TODAY Your symptoms are likely from a viral infection. Viral infections do not respond to antibiotics and are limited to the treatment of symptoms. Viral infections typically run their course in 7-10 days. Drink plenty of fluids, especially if you are running any fever. Use salt water gargles several times a day. Take over the counter acetaminophen (Tylenol) or ibuprofen (Advil, Motrin) according to directions as needed for pain or fever. You may also use Chloraseptic spray or Cepacol lonzenges according to directions which contain a numbing medication and can provide some temporary relief from a sore throat. Return here or follow up with your primary care provider in 7 days if symptoms persist. - Billing Disposition and Condition Condition: STABLE Disposition: Home
[2019-11-05 11:09] LABS: Influenza A Molecular Negative (Negative); Influenza B Molecular Negative (Negative)
== END 2019-11-05 11:24 | disposition home or self-care (01) ==
LOC: UCEAST 09:17
DX: B34.9 Viral infection, unspecified (principal); R53.83 Other fatigue; R09.81 Nasal congestion; R05 Cough; Z88.0 Allergy status to penicillin; Z91.018 Allergy to other foods; Z91.040 Latex allergy status
CPT/HCPCS: 99211; G0463